=== PATIENT | male | born 2000 | race Caucasian/White ===

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

== ENCOUNTER 2018-02-25 19:44 | Emergency (ER) | payer OTHER ==
[~2018-02-25] VITALS: Ht 188 cm; Wt 55.0 kg
[~2018-02-25 19:44] MED LIST changes: +BENTYL20 MG PO; +ZOFRAN ODT8 MG PO
[2018-02-25] MEDS ORDERED: MOTRIN600 MG PO (20:45)
[2018-02-25 21:09] VITALS: BP 121/70
== END 2018-02-25 21:10 | disposition home or self-care (01) ==
LOC: EME 19:44 → RME 19:44
DX: S93.402A Sprain of unspecified ligament of left ankle, initial encounter (principal); W16.612A Jumping or diving into natural body of water striking water surface causing other injury, initial encounter; X50.1XXA Overexertion from prolonged static or awkward postures, initial encounter; Z88.6 Allergy status to analgesic agent; Z91.048 Other nonmedicinal substance allergy status
CPT/HCPCS: 73610; 73630; 99281; 99283